=== PATIENT | male | born 1950 | race Caucasian/White ===

== ENCOUNTER 2016-05-20 15:23 | Emergency (ER) | payer MEDICARE, OTHER ==
[~2016-05-20] VITALS: Ht 177.8 cm; Wt 74.8 kg
[2016-05-20 15:42] VITALS: BP 118/74
--- NOTE | 2016-05-20 16:36 | RAD ---
Indication: Pain and swelling. Technique: 2 views of the left humerus are submitted for review. No comparison is available. Findings: No fracture or osseous lesion is identified. Impression: Negative for fracture.
--- NOTE | 2016-05-20 16:37 | RAD ---
Indication: Injury, pain. Technique: 3 views of the left elbow are submitted for review. No comparison is available. Findings: There is no fracture or dislocation. There is no joint effusion or displacement of fat pads. There is no soft tissue swelling. Impression: Negative for fracture.
[2016-05-20] MEDS ORDERED: HYDR-971 PO (16:44)
[2016-05-20] MEDS ORDERED: HYDROCODONE/APAP 5/325MG TABLET. PO ONE (16:45)
--- NOTE | 2016-05-20 16:45 | PHYS DOC ---
Past Medical History Past Medical History: No Pertinent History Past Surgical History: Other Additional Past Surgical Histo: HERNIA X 2 Additional Information: 1.5 PPD Alcohol Use: Occasionally Drug Use: None Adult General Chief Complaint Chief Complaint: left arm injury HPI HPI Patient is a 65 year old male who comes from home after an injury to his left arm/elbow. The patient was moving a heavy piece of furniture down the stairs when it slipped and came down, pinning his left arm against a wall, he was able to swing the furniture off of his arm but then collapsed in pain. He has an isolated injury to the left arm, he did not injure himself anywhere else. He does note that a few days ago he had a piece of sheet rock fall and scraped his left arm/elbow, and also a few weeks ago, he fell off the ladder and injured his left shoulder, but that seems to be okay now. Review of Systems Review of Systems Constitutional: Denies fever or chills [] Eyes: Denies change in visual acuity, redness, or eye pain [] HENT: Denies nasal congestion or sore throat [] Respiratory: Denies cough or shortness of breath [] Cardiovascular: Denies chest pain GI: Denies abdominal pain, nausea, vomiting, bloody stools or diarrhea [] : Denies dysuria or hematuria [] Musculoskeletal: As in history of present illness Integument: Left arm abrasions from sheet rock incident a few days ago as in history of present illness Neurologic: Denies headache, focal weakness or sensory changes [] Current Medications Current Medications Current Medications Medications (Trade) Dose Ordered Sig/Elvin Start Time Stop Time Status Last Admin Dose Admin Acetaminophen/ Hydrocodone Bitart (Lortab 5/325) 1 tab 1X ONCE 05/20/16 16:45 05/20/16 16:48 DC 05/20/16 16:46 1 TAB Allergies Allergies Allergies Coded Allergies Type Severity Reaction Last Updated Verified No Known Drug Allergies 03/05/13 No Physical Exam Physical Exam Constitutional: Well developed, well nourished, no acute distress, non-toxic appearance. Alert, mentating normally. HENT: Normocephalic, atraumatic, bilateral external ears normal, nose normal. [] Eyes: conjunctiva normal, no discharge. [] Neck: Normal range of motion, no stridor. [] Skin: Warm, dry, no erythema, no rash. [] Extremities: Left upper extremity. Clavicle, shoulder nontender to palpation, no deformity. Humerus proximal nontender to palpation, distal humerus tender to palpation without palpable deformity. Elbow without swelling or deformity. Tenderness to palpation generally of the distal humerus and elbow. Forearm, wrist, hand nontender and no deformity. Superficial linear abrasions which are hemostatic and appear consistent with a history of a few days old R present on the dorsal aspect of the elbow. Capillary refill less than 2 seconds of the left hand, radial and ulnar pulses are normal. Neurologic: Alert and oriented X 3, normal motor function, normal sensory function, no focal deficits noted. [] Current Patient Data Vital Signs Vital Signs Date Time Temp Pulse Resp B/P Pulse Ox O2 Delivery O2 Flow Rate FiO2 05/20/16 16:46 18 05/20/16 15:42 97.8 70 118/74 95 Room Air 97.8 EKG EKG [] Radiology/Procedures Radiology/Procedures Three-view x-rays of the left humerus and three-view x-rays of the left elbow read by me. There is no definite acute bony abnormality. Negative fat pad. X-rays were also read by the radiologist negative for fracture. [] Course & Med Decision Making Course & Med Decision Making Pertinent Labs and Imaging studies reviewed. (See chart for details) 65-year-old male whose left arm was injured moving a piece of furniture, x-rays are negative for acute injury. Although he did have somewhat of a crush injury, I don't believe it was his significant soft tissue injury and are not concerned about compartment syndrome based on the exam at this time. I will have him sling and ice for 2-3 days and follow-up if not significantly improved after that time. [] Dragon Disclaimer Dragon Disclaimer This electronic medical record was generated, in whole or in part, using a voice recognition dictation system. Departure Departure Impression: Primary Impression: Contusion of left elbow Disposition: 01 HOME, SELF-CARE Condition: STABLE Referrals: CLIFF BELTRAN MD (PCP) Patient Instructions: Elbow Contusion, [id number] Additional Instructions: X-rays do not show anything broken, but initial x-rays can occasionally miss a hairline crack. I suggest that you baby your left arm/elbow for 2-3 days and if it is getting a lot better, you can go back to normal activity, if it is not improving after 2-3 days, recheck with your doctor and it may need x-rays to be repeated. Elevate, ice 15-20 minutes out of every 1-2 hours. Wear the sling for comfort but remove the sling 2-3 times a day and gently range of motion your arm as discussed. Ibuprofen 600-800 mg every 6-8 hours for pain. If needed for more severe pain, hydrocodone as prescribed, this is an opiate, it will make you sleepy, do not take while driving, and it will cause constipation. Scripts Hydrocodone/Apap 5-325 ([place] 5-325 Tablet)1 Each Tablet1-2 Tab PO Q4-6HRS #20 TAB For more severe pain May be taken with ibuprofen Do not take while driving Prov:DIALLO FELICIANO MD 05/20/16 DIALLO FELICIANO MD May 20, 2016 16:45
== END 2016-05-20 16:56 | disposition home or self-care (01) ==
LOC: ER 15:23
DX: S50.02XA Contusion of left elbow, initial encounter (principal); F17.200 Nicotine dependence, unspecified, uncomplicated; W10.8XXA Fall (on) (from) other stairs and steps, initial encounter; Y93.89 Activity, other specified; Y92.89 Other specified places as the place of occurrence of the external cause; Y99.8 Other external cause status
CPT/HCPCS: 73060; 73080; 99284; 99285-25